=== PATIENT | male | born 1950 | race Caucasian/White ===

== ENCOUNTER 2017-03-08 15:31 | Emergency (ER) | payer MEDICARE ==
[2017-03-08 17:28] VITALS: BP 134/68
[2017-03-08] MEDS ORDERED: cefTRIAXone VIAL(*) 1,000 MG VIAL IM ONE (17:53)
--- NOTE | 2017-03-08 17:53 | UC ---
Knee Pain HPI - HPI Summary HPI Summary: 66 y/o male PMHX of DM presents to the urgent care c/o Rt knee pain with a boil swollen and warm to touch just below the knee. Pt reports He was kneeling in a mixture of hay and topsoil, then he noticed a tiny wound below the knee has becomed infected with pus, swollen and warm to touch. Pt states fever at home and has not taking any medication to alleviate symptoms. P - History of Current Complaint Chief Complaint: UCSkin Stated Complaint: KNEE PAIN,SWELLING Time Seen by Provider: 03/08/17 17:36 Hx Obtained From: Patient Onset/Duration: Sudden Onset, Lasting Days, Still Present Severity Initially: Mild Severity Currently: Moderate Location Of Injury: wound just below the RT knee with redness, swollen and warm to touch Pain Intensity: 5 Pain Scale Used: 0-10 Numeric Character: Dull Alleviating Factor(s): Rest Associated Signs And Symptoms: Positive: Swelling, Redness Able to Bear Weight: Yes - Risk Factors Septic Arthritis Risk Factor: Negative Gout Risk Factor: Male, DM, HTN - Allergies/Home Medications Allergies/Adverse Reactions: Allergies Allergy/AdvReac Type Severity Reaction Status Date / Time Codeine Allergy Vomiting Verified 03/08/17 16:26 Home Medications: Home Medications Citalopram TAB* [Celexa TAB*] 10 mg PO DAILY 03/08/17 [History Confirmed ] Glimepiride 1 mg PO DAILY 03/08/17 [History Confirmed 03/08/17] Lisinopril TAB* [Prinivil TAB 5 MG*] 5 mg PO BID 03/08/17 [History Confirmed 06/15] Lovastatin [Altoprev] 20 mg PO DAILY 03/08/17 [History Confirmed 03/08/17] metFORMIN* [Glucophage 500 MG TAB *] 1,000 mg PO BID 03/08/17 [History Confirmed 03/08/17] traZODone TAB* [Desyrel TAB*] 50 mg PO BEDTIME 03/08/17 [History Confirmed 03/08] PMH/Surg Hx/FS Hx/Imm Hx Previously Healthy: Yes Endocrine History: Diabetes, Dyslipidemia Cardiovascular History: Hypertension Psychological History: Depression - Surgical History Surgical History: None - Family History Known Family History: Positive: Cardiac Disease, Diabetes - Social History Occupation: Retired Lives: With Family Alcohol Use: None Substance Use Type: None Smoking Status (MU): Former Smoker Review of Systems Skin: Other - infected wound just below the Rt knee with swelling, warm, painful. Eyes: Negative ENT: Negative Respiratory: Negative Cardiovascular: Negative Gastrointestinal: Negative Genitourinary: Negative Motor: Negative Neurovascular: Negative Musculoskeletal: Negative Neurological: Negative Psychological: Negative All Other Systems Reviewed And Are Negative: Yes Physical Exam Triage Information Reviewed: Yes Appearance: Well-Appearing, No Pain Distress, Well-Nourished, Thin Vital Signs: Initial Vital Signs Temp 99.9 F 03/08/17 16:19 Pulse 96 03/08/17 16:19 Resp 18 03/08/17 16:19 BP 136/89 03/08/17 16:19 Pulse Ox 98 03/08/17 16:19 Vital Signs Reviewed: Yes Eye Exam: Normal Eyes: Positive: Conjunctiva Clear - PERRLA, EOMI, Fundi grossly normal ENT Exam: Normal ENT: Positive: Normal ENT inspection, Hearing grossly normal, Pharynx normal, TMs normal Dental Exam: Normal Neck exam: Normal Neck: Positive: Supple, Nontender, No Lymphadenopathy Respiratory Exam: Normal Respiratory: Positive: Chest non-tender, Lungs clear, Normal breath sounds Cardiovascular Exam: Normal Cardiovascular: Positive: RRR, No Murmur, Pulses Normal, Brisk Capillary Refill Abdominal Exam: Normal Abdomen Description: Positive: Nontender, No Organomegaly, Soft. Negative: CVA Tenderness (R), CVA Tenderness (L) Bowel Sounds: Positive: Present Musculoskeletal Exam: Normal Musculoskeletal: Positive: Strength Intact Neurological Exam: Normal Psychological Exam: Normal Skin: Positive: Other - erythematous rash swollen, warm to touch, tender to palpation with a infected mosquito bite. with mild pus. erythema is about 8cm x 8cm in size. FROM of the RT knee, positive pulses and capillary refill, sensation is positive. Lower leg with mild edema. Knee Pain Course/Dx - Course Course Of Treatment: 66 y/o male PMHX of DM presents to the urgent care c/o Rt knee pain with a boil swollen and warm to touch just below the knee. Hx obtained. Abnormal PE findings: erythematous rash swollen, warm to touch, tender to palpation with a infected mosquito bite. with mild pus. erythema is about 8cm x 8cm in size. FROM of the RT knee, positive pulses and capillary refill, sensation is positive. Lower leg with mild edema. Rocefin 1g IM w/ Lidocaine ordered at the clinic. Pt tolerated well IM inj. Cellulitis of the RT leg demarcated with a marker. Pt Rx Bactrim BID x 10 days to cover for MRSA and also PX Bacitracin oirment. Pt advised to f/u with PCP in 3 days for further evaluation and treatment. However if erythema increases beyond the demarcated area, Pt advised to go to the Ed inmediately. Pt understood and agreed. - Differential Dx/Diagnosis Differential Diagnosis/HQI/PQRI: Infection, Puncture Wound, Other - abscess, cellulitis Provider Diagnoses: cellulitis of the RT leg, Discharge - Discharge Plan Condition: Stable Disposition: HOME Prescriptions: Acetaminophen TAB* [Tylenol TAB*] 650 mg PO Q6H PRN #20 tab PRN Reason: Pain Bacitracin OINT* 500 gm .SEE ORDER TID #1 tube Sulfamethox/Trimethoprim DS* [Bactrim DS 800/160 TAB*] 1 tab PO BID #20 tab Patient Education Materials: Cellulitis (ED) Referrals: Castro Allison MD [Primary Care Provider] - 3 Days (Pt with cellulitis Rx Bactrim x 10 days. Please f/u treatment. ) Additional Instructions: Please take medications as instructed and finish the full course of treatment to avoid recurrent infection. If cellulitis is increasing beyond the demarcated area and fever continues despite Tylenol, please go immediately to the ER. Otherwise f/y in [address] Allison for further evaluation and treatment.
[2017-03-08] MEDS ORDERED: Lidocaine 1%* 5 ML VIAL INJ ONE (18:27)
[2017-03-08] MEDS ORDERED: Lidocaine 2% PF * 5 ML VIAL INJ ONE (18:32)
== END 2017-03-08 19:00 | disposition home or self-care (01) ==
LOC: UCEAST 15:31
DX: L03.115 Cellulitis of right lower limb (principal); E11.9 Type 2 diabetes mellitus without complications; I10 Essential (primary) hypertension; Z87.891 Personal history of nicotine dependence
CPT/HCPCS: 96372; 99202; G0463; J0696